=== PATIENT | female | born 1970 | race Caucasian/White ===

== ENCOUNTER 2018-03-22 13:16 | Emergency (ER) | payer OTHER, SELFPAY ==
[2018-03-22 13:17] VITALS: BP 129/76; PULSE 68; RESP 16; TEMP 36.5; O2SAT 98
--- NOTE | 2018-03-22 13:28 | CT_ITS ---
STUDY: CT BRAIN WITHOUT CONTRAST REASON FOR EXAM: Female, 47 years old. Severe headache while driving with blurry vision RADIATION DOSAGE (If Supplied By Facility): CTDIvol = ( 44.99 ) mGy, DLP = ( 812.98 ) mGycm TECHNIQUE: Transaxial CT imaging of the brain was performed without administration of intravenous contrast material. Individualized dose optimization techniques were used for this CT. COMPARISON: None. FINDINGS: Normal soft tissue structures. Normal calvarium. Normal size ventricles and extra-axial spaces for the patient's age. Normal white matter tracts of the cerebral hemispheres. Normal basal ganglia and thalami. Normal brainstem. Normal cerebellum. There is no intracranial hemorrhage. There are no findings of an acute ischemic infarction. Normal visualized paranasal sinuses. CT/Brain/Head without Contrast IMPRESSION: Normal unenhanced CT scan of the brain. Electronically Signed: Robbie Thomson DO at 14:35 EST Tel , Service support ,
--- NOTE | 2018-03-22 13:44 | CT_ITS ---
STUDY: CTA OF THE BRAIN REASON FOR EXAM: Female, 47 years old. Headache RADIATION DOSAGE (If Supplied By Facility): CTDIvol = ( ) mGy, DLP = ( ) mGycm TECHNIQUE: CT angiography was performed with a multi-detector CT scanner. Data acquisition was obtained from the skull base through the vertex following intravenous administration of 100 ml of Isovue-370. MIP images were reconstructed from the axial data set. Post-processing of the angiographic images was performed, with multiplanar reformation and 3D reconstruction. Individualized dose optimization techniques were used for this CT. COMPARISON: None. FINDINGS: Normal bilateral petrous carotid arteries. Normal right cavernous carotid artery with a normal supraclinoid bifurcation. Normal left cavernous carotid artery with a normal supraclinoid bifurcation. Normal right A1 segments of the anterior cerebral artery. Normal left A1 segments of the anterior cerebral artery. Normal intact anterior communicating artery (ACOM). Normal bilateral A2 segments of the anterior cerebral arteries. Normal right M1 and M2 segments of the middle cerebral arteries, with a normal M1 bifurcation. Normal left M1 and M2 segments of the middle cerebral arteries, with a normal M1 bifurcation. Normal right posterior communicating artery (PCOM). Normal left posterior communicating artery (PCOM). Normal bilateral vertebral arteries. Normal basilar artery with a normal basilar bifurcation. The visualized bilateral superior cerebellar (SCA) arteries are normal. Normal bilateral P1, P2 and visualized P3 segments of the posterior cerebral arteries. There is no demonstrated aneurysm of the [place]. There is no demonstrated abnormality of the visualized brain. CT/CTA Head W/WO Contrast IMPRESSION: Normal [place] without a demonstrated aneurysm or hemodynamically significant stenosis. Electronically Signed: Alexis Daniel MD at 15:38 EST , Service support ,
--- NOTE | 2018-03-22 13:44 | CT_ITS ---
STUDY: CTA NECK WITH CONTRAST REASON FOR EXAM: Female, 47 years old. Headache with blurred vision RADIATION DOSAGE (If Supplied By Facility): CTDIvol = ( 21.83 ) mGy, DLP = ( 652.20 ) mGycm TECHNIQUE: CT angiography with multi-detector data acquisition was performed from the aortic arch to the skull base following intravenous administration of 100ML ml of Isovue 370 contrast. MIP images were reconstructed from the axial data set. Post-processing of the angiographic images was performed, with multiplanar reformation and 3D reconstruction. Individualized dose optimization techniques were used for this CT. COMPARISON: None. FINDINGS: AORTIC ARCH: Normal visualized aortic arch. Normal origins of the brachiocephalic, left common carotid, and left subclavian arteries. RIGHT CAROTID ARTERIES: Normal right common carotid artery (CCA). Normal right common carotid bulb. Normal origin of the right internal carotid (ICA) artery without a hemodynamically significant stenosis. Normal visualized cervical portion of the right internal carotid artery. Normal origin of the right external carotid artery (ECA). LEFT CAROTID ARTERIES: Normal left common carotid artery (CCA). Trace calcific plaque of the lateral carotid bulb wall but no hemodynamically significant stenosis. Normal origin of the left internal carotid (ICA) artery without a hemodynamically significant stenosis. Normal visualized cervical portion of the left internal carotid artery. Normal origin of the left external carotid artery (ECA). VERTEBRAL ARTERIES: Normal bilateral vertebral arteries. CT/CTA Neck W/WO Contrast IMPRESSION: Normal bilateral cervical carotid and vertebral arteries. Electronically Signed: Alexis Daniel MD at 15:46 EST , Service support ,
[2018-03-22 13:46] LABS: Absolute Lymphocyte Count 1.56 X10^3/ul (0.83-4.51); Absolute Neutrophil Count 4.6 X10^3/uL (2.0-7.7); Basophil# 0.01 X10^3/uL; Basophil% 0.1 % (0-1); Eosinophil# 0.12 X10^3/uL; Eosinophils% 1.8 % (0-5); Hematocrit 36.3 % (37-47); Hemoglobin 12.1 g/dl (12.0-15.0); Lymphocyte # 1.56 X10^3/ul (4.0); Lymphocyte % 22.9 % (19-41); Mean Corp Hgb Conc 33.3 g/gl (32-36); Mean Corpuscular Hgb 30.5 pg (27.0-32.0); Mean Corpuscular Volume 91.4 fL (81-99); Mean Platelet Vol. 9.7 fl (6.2-12.0); Monocyte# 0.51 X10^3/uL; Monocyte% 7.5 % (0-10); Neutrophil % 67.6 % (47-70); Platelet Count 244 K/mm3 (150-450); RBC Distribution Width CV 13.2 % (11.6-14.6); RBC Distribution Width SD 43.5 fl (35.1-43.9); Red Blood Count 3.97 M/mm3 (4.2-5.4); White Blood Count 6.8 K/mm3 (4.4-11.0)
[2018-03-22 13:48] LABS: POSITIVE COUNT NO; POSITIVE DIFFERENTIAL NO; POSITIVE MORPHOLOGY NO
[2018-03-22 13:52] LABS: Erythrocyte Sedimentation Rate 28 mm/hr (0-20)
[2018-03-22 13:57] LABS: Anion Gap 7 (5-15); BUN 11 mg/dL (7-18); BUN/Creat Ratio 15.6 RATIO (10-20); Calcium,Total 10.2 mg/dL (8.5-10.1); Chloride 105 mmol/L (98-107); EST Glomerular Filtration Rate 94 mL/min (>60); Est Glom Filt Rate - Afr Amer 114 mL/min (>60); Glucose 97 mg/dL (74-106); Potassium 3.7 mmol/L (3.5-5.1); Sodium Level 138 mmol/L (136-145)
[2018-03-22] MEDS: Ketorolac 30 MG/ML Syringe IV (14:12)
[2018-03-22] MEDS: 0.9% Normal Saline 1,000 ML 1000 ML IV (14:12)
[2018-03-22] MEDS: Metoclopramide 10 MG/2 ML Vial IV (14:12)
[2018-03-22] MEDS: DiphenhydrAMINE 50 MG/ML Syringe 25 MG IV (14:12)
--- NOTE | 2018-03-22 15:53 | ED.VISSUMM ---
- ER Visit Summary Date of Service: 03/22/18 Chief Complaint: [Headache] History of Present Illness: The patient is a 47 F [presents the emergency department complaint of a headache that started around 11 AM. Patient states that she was sitting in [facility] when she had sudden onset of headache started in the front of her head kind of radiates over the top of her head towards the back. Patient states that she has had some blurred vision and some double vision associated with this. Patient has had nausea and did vomit once. Patient does describe some photophobia. Patient is never had a headache like this before. Patient does not have a history of migraines. There is no family history of brain aneurysms or tumors. She has not had any falls or head injuries. Patient got in her car to drive home and only made it half way home in called her to come pick her up because she did not feel safe to drive. Patient does have a history of hyperparathyroidism and hypothyroidism. Patient has a history of high cholesterol.] Physical Examination: [HEENT-PERRLA, EOMI. Cranial nerves II through XII grossly intact. TMs clear. Mucous membranes moist. No adenopathy. Cardiovascular-regular rate and rhythm without murmur or ectopy Lungs-clear to auscultation, chest wall stable without crepitus or subcu emphysema Abdomen-normoactive bowel sounds, soft, nontender, no rebound or rigidity, no peritoneal signs. Neuro qcik-npjyvm-oyac and heel crenshaw testing within normal limits, negative Romberg, negative pronator, fundi benign Extremities-intact ?4, normal range of motion, normal pulses, atraumatic] Test Results: [CT scan of the brain without contrast was unremarkable. CBC with differential is normal. Chemistries unremarkable. Sed rate was slightly elevated 28. CTA of the head and neck obtained were normal.] Emergency Department Course and Treatment: [Patient was given a liter normal same fluid bolus as well as Reglan, Benadryl, and Toradol and her headache mostly resolved at this point. Patient able to ambulate throughout the department without difficulty.] Treatment Plan: [Patient to follow-up with her primary care physician within next 3-5 days. Patient advised to return if worsening headache, difficult with balance or speech, or condition should worsen anyway.] Disposition: [Discharged home in stable condition] Impression: [[id number] migraine] This note was generated with [employer] dictation software. It may contain incorrect words, spelling, and punctuation that were not noted in review of the chart prior to signing ED Disposition - Plan for ED Patient: Chief Complaint: Headache Referrals: [facility] Doctor,Out of [Primary Care Provider] -
--- NOTE | 2018-03-22 15:56 | ED.DEP ---
ED Disposition - Plan for ED Patient: Chief Complaint: Headache Instructions: ED Cephalgia Unspecified, ED Headache Migraine Referrals: [facility],Out of [Primary Care Provider] - 3-5 Days
[2018-03-22 16:19] VITALS: BP 109/63; PULSE 79; RESP 16; O2SAT 99
== END 2018-03-22 16:19 | disposition home or self-care (01) ==
PROVIDERS: Emergency Provider Emergency Medicine
DX: R51 Headache (principal); E21.3 Hyperparathyroidism, unspecified; E03.9 Hypothyroidism, unspecified; E78.00 Pure hypercholesterolemia, unspecified; Z79.899 Other long term (current) drug therapy
CPT/HCPCS: 70450; 70496; 70498; 80048; 85025; 85652; 96374; 96375; 99285; J7030; Q9967; A4216